=== PATIENT | female | born 1935 | race Caucasian/White ===

== ENCOUNTER 2023-07-28 09:36 | Emergency (ER) | payer OTHER ==
[~2023-07-28] VITALS: Ht 162.6 cm; Wt 54.4 kg
[2023-07-28 09:39] VITALS: BP 109/80; PULSE 72; RESP 16; TEMP 98.1; O2SAT 96
[2023-07-28 12:13] VITALS: O2SAT 96
== END 2023-07-28 13:35 ==
LOC: MED 09:36
DX: S00.12XA Contusion of left eyelid and periocular area, initial encounter (principal); S09.90XA Unspecified injury of head, initial encounter; W18.30XA Fall on same level, unspecified, initial encounter; Y93.89 Activity, other specified; Y92.89 Other specified places as the place of occurrence of the external cause; Y99.8 Other external cause status
CPT/HCPCS: 70450; 70486; 72125; 93005; 99284